=== PATIENT | male | born 1960 | race African-American/Black ===

== ENCOUNTER 2022-08-15 00:53 | Emergency (ER) | payer MEDICARE, MEDICAID ==
[~2022-08-15] VITALS: Ht 172.7 cm; Wt 61.0 kg
[2022-08-15] MEDS ORDERED: IBUP-2029 MT (02:05)
[2022-08-15] MEDS ORDERED: HYDROCODONE/ACETAMINOPHEN 5/325MG TABLET PO ONE (02:15)
[2022-08-15 06:00] VITALS: BP 144/89
== END 2022-08-15 06:00 | disposition home or self-care (01) ==
LOC: ER 01:17
DX: R56.9 Unspecified convulsions (principal); F12.90 Cannabis use, unspecified, uncomplicated; F10.90 Alcohol use, unspecified, uncomplicated; Y90.9 Presence of alcohol in blood, level not specified
CPT/HCPCS: 72170; 99283